=== PATIENT | female | born 1980 | race Caucasian/White ===

== ENCOUNTER 2025-06-06 11:25 | Emergency (ER) | payer OTHER, SELFPAY ==
[2025-06-06 11:37] VITALS: BP 123/88; PULSE 74; RESP 18; TEMP 36.6; O2SAT 100
--- NOTE | 2025-06-06 11:54 | ED.GENADULT ---
HPI - General Adult General Chief complaint: Urogenital-Female Stated complaint: UTI Time Seen by Provider: 06/06/25 11:54 Source: patient Mode of arrival: ambulatory Limitations: no limitations History of Present Illness HPI narrative: 45-year-old female patient presents to the [facility] with complaints of urinary symptoms for the past 2-3 days. Patient states she has had some low back pain, lower abdominal pain, pain with urination, urgency and frequency. Denies fevers body aches or chills she is aware of. Patient states she has not had UTIs before in the past but states that she is starting to go through a postmenopausal state. Patient denies stating that her tubes are tied. Related Data Allergies Allergy/AdvReac Type Severity Reaction Status Date / Time No Known Allergies Allergy Verified 06/06/25 11:34 Review of Systems Review of Systems: CONSTITUTIONAL: Denies fever, chills, or sweats. EYES: Denies visual changes, redness, or discharge. ENT: Denies rhinorrhea, congestion, sore throat, or otalgia. CARDIOVASCULAR: Denies chest pain, palpitations, or edema. RESPIRATORY: Denies cough or dyspnea. GASTROINTESTINAL: positive lower abdominal pain, denies nausea, vomiting, or diarrhea. GENITOURINARY: Positive dysuria positive mild hematuria. SKIN: Denies rash or itching. MUSCULOSKELETAL: positive low back pain, deniesjoint pain, or myalgia. NEUROLOGIC: Denies headache, numbness, or weakness. PSYCHIATRIC: Denies anxiety or depression. PMFSH Comments At the time of my signature I agree with nursing past medical history, surgical, social, and family history. There is no relevant family history pertinent to the presenting complaint. Exam Narrative: GENERAL: Well-appearing, well-nourished, and in no acute distress. HEAD: Normocephalic, atraumatic. EYES: PERRLA and EOMI. ENT: Nares clear, no rhinorrhea or epistaxis. Mucous membranes moist. NECK: Supple. No lymphadenopathy CHEST: Clear to auscultation. No respiratory distress. HEART: Regular rate and rhythm. No murmur heard. Normal peripheral pulses. ABDOMEN: Soft, nontender, nondistended, normal active bowel sounds. no CVA tenderness on percussion EXTREMITIES: Normal range of motion. No edema. SKIN: Warm, dry, no rash. NEURO: No focal deficits. Alert and oriented x3. Course Course Level of Care: Express Care Visit Vital Signs Vital signs: Vital Signs Temperature 36.6 C 06/06/25 11:37 Pulse Rate 74 06/06/25 11:37 Respiratory Rate 18 06/06/25 11:37 Blood Pressure 123/88 06/06/25 11:37 Pulse Oximetry 100 06/06/25 11:37 Oxygen Delivery Room Air 06/06/25 11:37 Temperature 36.6 C 06/06/25 11:37 Pulse Rate 74 06/06/25 11:37 Respiratory Rate 18 06/06/25 11:37 Blood Pressure 123/88 06/06/25 11:37 Pulse Oximetry 100 06/06/25 11:37 Oxygen Delivery Room Air 06/06/25 11:37 Vital signs reviewed. Medical Decision Making MDM Narrative Medical decision making narrative: discussed with patient that her urine dip is suggestive of a UTI along with her symptoms. Discussed with patient we will discharge her home with oral antibiotics for UTI infection. Encouraged patient to take [id number] Tylenol and ibuprofen as needed for pain she can also use [id number] AZO to help with urinary pain. Discussed with patient to drink lots and lots of water to help flush out her system and avoid sugary drinks. Patient verbalized understanding denies any other questions or concerns at this time. Differential Diagnosis Differential Diagnosis: Differential diagnosis: Uncomplicated lower UTI, uncomplicated UTI, pyelonephritis Vital Signs Vital Signs: Vital Signs Temperature 36.6 C 06/06/25 11:37 Pulse Rate 74 06/06/25 11:37 Respiratory Rate 18 06/06/25 11:37 Blood Pressure 123/88 06/06/25 11:37 Pulse Oximetry 100 06/06/25 11:37 Oxygen Delivery Room Air 06/06/25 11:37 Temperature 36.6 C 06/06/25 11:37 Pulse Rate 74 06/06/25 11:37 Respiratory Rate 18 06/06/25 11:37 Blood Pressure 123/88 06/06/25 11:37 Pulse Oximetry 100 06/06/25 11:37 Oxygen Delivery Room Air 06/06/25 11:37 Lab Data Labs: Lab Results 06/06/25 Range/Units 11:54 POC Urine Color Yellow POC Urine Clarity Clear POC Urine pH 6.0 POC Ur Specif [place] 1.010 POC Urine Protein 1+ (Negative) POC Ur Glucose (UA) Negative (Negative) POC Urine Ketones Negative (Negative) POC Urine Blood 2+ (Negative) POC Urine Nitrite Negative (Negative) POC Urine Bilirubin Negative (Negative) POC Urine Urobilinogen 0.2 POC U Leukocyte Esteras 1+ (Negative) Critical Care Time Critical Care Time Critical Care Time: No Discharge Plan Discharge Clinical Impression: Urinary tract infection Qualifiers: Urinary tract infection type: acute cystitis Hematuria presence: with hematuria Qualified Code(s): N30.01 - Acute cystitis with hematuria Patient Disposition: Home Condition: Stable Instructions: Antibiotic Form, Urinary Tract Infection in Women (ED) Additional Instructions: We will send a urine culture off to the lab; if the culture identifies an organism that the prescribed antibiotic will not treat, you will receive a phone call from an urgent care staff member and an appropriate antibiotic will be prescribed. -Your symptoms should begin to improve within a day of starting antibiotics. But you should finish all the antibiotic pills you get. Otherwise your infection might come back. -Also recommend: drink more fluid. It might help flush out germs, and it does no harm -Tylenol/ibuprofen prn for pain or fever -Follow-up with your primary care provider for urine recheck or seek ER visit if condition worsens with high fever, nausea, vomiting and severe back pain. Patient Language: Bahamian Prescriptions: New nitrofurantoin monohyd/m-cryst [Macrobid] 100 mg capsule 100 mg PO Q12H 5 Days Qty: 10 0RF Rx Instructions: must administer with a meal/food Follow-up/Referrals: PHYSICIAN,FLIGHT SERVICE AGENT [Primary Care Provider, Internal Medicine] Time of Disposition: 12:01
[2025-06-06 11:56] LABS: EDUAAPPEAR Clear; EDUABILI Negative (Negative); EDUABLOOD 2+ (Negative); EDUACOLOR1 Yellow; EDUAGLUCOSE Negative (Negative); EDUAKETONE Negative (Negative); EDUALEUKO 1+ (Negative); EDUANITRATE Negative (Negative); EDUAPH 6.0; EDUAPROTEIN 1+ (Negative); EDUASPGRAVITY 1.010; EDUAUROBILI 0.2
== END 2025-06-06 12:03 | disposition home or self-care (01) ==
PROVIDERS: Emergency Provider Nurse Practitioner Family
DX: N30.01 Acute cystitis with hematuria (principal)
CPT/HCPCS: 81003; 87086; 87186; 99213; G0463